=== PATIENT | male | born 1975 | race Caucasian/White ===

== ENCOUNTER 2019-03-28 14:16 | Emergency (ER) | payer MEDICARE, OTHER ==
[~2019-03-28] VITALS: Ht 182.8 cm; Wt 79.5 kg
--- NOTE | 2019-03-28 14:16 | NUR ---
Patient arrived at 1412 by [facility] with no C-collar in place. C-Collar placed on patient by tech. Jason
--- NOTE | 2019-03-28 14:20 | NUR ---
Swelling present to left posterior head, laceration to bridge of nose, multiple abrasions to face, bilateral abrasions to knees, abrasions to the right hand. Patient complaining of pain to posterior neck and mid back pain. Patient moving all extremities.
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
[2019-03-28 14:42] LABS: MEAN PLATELET VOLUME 9.3 FL (7.4-10.4); RED CELL DISTRIBUTION WIDTH 15.2 % (10.0-14.5); WHITE BLOOD COUNT 12.5 10^3/uL (4.3-11.0)
[2019-03-28] MEDS ORDERED: TETANUS,DIPTH,PERTUSS P/F (BOOSTRIX) 0.5 ML VIAL IM ONE (14:45)
--- NOTE | 2019-03-28 14:46 | Diagnostic Imaging Report ---
EXAMINATION: Chest 1 view HISTORY: Fall FINDINGS: No comparison available. Upper mediastinum is widened, likely related to portable technique. No pleural effusion or pneumothorax. No edema or pneumonia. IMPRESSION: 1. Widening of the upper mediastinum is likely related to portable technique. However, if the mechanism of injury is appropriate, a mediastinal hematoma could appear similarly. Dictated by: Dictated on workstation # [id number]
--- NOTE | 2019-03-28 14:48 | Diagnostic Imaging Report ---
INDICATION: Fall from roof. COMPARISON: None available. TECHNIQUE: Single AP view of the pelvis. FINDINGS: No traumatic diastases of the SI joints or symphysis pubis. No hip dislocation. No displaced fracture. Posterolateral instrumented fusion at L5-S1 utilizing screws. IMPRESSION: No fracture or traumatic malalignment in the pelvis by radiography. Dictated by: Dictated on workstation # [id number]
--- NOTE | 2019-03-28 14:57 | Diagnostic Imaging Report ---
EXAMINATION: CT head and CT cervical spine without contrast. TECHNIQUE: Multiple contiguous axial images were obtained through the brain and cervical spine without the use of intravenous contrast. Sagittal and coronal reformations through the cervical spine were then performed. All CT scans use one or more of the following dose optimizing techniques: automated exposure control, MA and/or KvP adjustment based on a patient size and exam type, or iterative reconstruction. HISTORY: Fall FINDINGS: No comparison available There is a left-sided scalp contusion. Basal ganglia calcifications are seen on the right. The neville-white matter differentiation is normal. No mass effect or midline shift. The ventricles are normal in size and configuration. Basilar cisterns are patent. There are no intra- or extra-axial fluid collections. There is no intracranial hemorrhage. The orbits are normal. There are bilateral maxillary sinus because retention cyst. There is ethmoid sinus mucosal thickening. Mastoid air cells are clear. No soft tissue abnormality is seen. No osseus lesions or fractures are seen. No fracture is seen in the face. The nasal bones are normal. Mandible and maxillae are normal. Zygomatic arches are normal. Pterygoid plates are normal. No soft tissue abnormality is seen. The alignment of the cervical spine is normal. No fracture is seen. Vertebral body heights are normal. The craniocervical junction is normal. Disc heights are normal. Facet and uncovertebral joints are normal. There is no osseus spinal canal stenosis. No soft tissue abnormality is seen in the neck. Limited views of the superior thorax are normal. IMPRESSION: 1. No acute intracranial abnormality. 2. No cervical spine fracture. 3. No fracture in the face. Dictated by: Dictated on workstation # [id number]
[2019-03-28 14:58] LABS: ALANINE AMINOTRANSFERASE 75 U/L (0-55); ALBUMIN 3.7 GM/DL (3.2-4.5); ALKALINE PHOSPHATASE 77 U/L (40-136); BILIRUBIN,DIRECT 0.5 MG/DL (0.0-0.3); BILIRUBIN,INDIRECT 0.7 MG/DL; BILIRUBIN,TOTAL 1.2 MG/DL (0.1-1.0); BUN/CREATININE RATIO 10; CALCIUM 8.6 MG/DL (8.5-10.1); CARBON DIOXIDE 17 MMOL/L (21-32); CHLORIDE 107 MMOL/L (98-107); CREATINE KINASE 79 U/L (30-200); CREATININE SERUM 1.44 MG/DL (0.60-1.30); GFR ESTIMATED 53; GLUCOSE 203 MG/DL (70-105); MAGNESIUM 1.9 MG/DL (1.6-2.4); PHOSPHORUS 3.5 MG/DL (2.3-4.7); POTASSIUM 3.5 MMOL/L (3.6-5.0); SODIUM 137 MMOL/L (135-145); TOTAL PROTEIN 6.4 GM/DL (6.4-8.2)
[2019-03-28] MEDS ORDERED: CATHETER FLUSH 10 ML SYR IV PRN (15:00)
[2019-03-28] MEDS ORDERED: NS 100 ML (IVPB) BAG IV ONE (15:00)
[2019-03-28] MEDS ORDERED: HOLD METFORMIN - RECEIVED CONTRAST 20 ML VIAL IV SCH (15:00)
[2019-03-28] MEDS ORDERED: IOHEXOL 350 MG/ML 100 ML (OMNIPAQUE 350) VIAL IV ONE (15:00)
--- NOTE | 2019-03-28 15:00 | NUR ---
Blood present in patient's left ear. Patient is complaining of pain to the left shoulder area upon return from CT scan.
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
[2019-03-28 15:10] LABS: INR 1.1 (0.8-1.4)
--- NOTE | 2019-03-28 15:19 | Diagnostic Imaging Report ---
PROCEDURE: CT chest, abdomen and pelvis with contrast. TECHNIQUE: Multiple contiguous axial images were obtained through the chest, abdomen and pelvis after the administration of intravenous contrast. Auto Exposure Controls were utilized during the CT exam to meet ALARA standards for radiation dose reduction. INDICATION: Trauma. COMPARISON: No comparison available. FINDINGS: The lungs are clear without edema or pneumonia. No pleural effusion or pneumothorax. No suspicious nodules. Heart size is normal. There is an area of subendocardial hypoenhancement at the apex which may represent an infarct, age indeterminate. No pericardial effusion. Aorta is normal in caliber. There is no axillary, supraclavicular or mediastinal lymphadenopathy. Liver is normal. No liver injury is seen. Gallbladder is normal. No biliary ductal dilation. Pancreas is normal. Portal vein is patent. There is a grade 3 splenic laceration with an associated subcapsular hematoma and free hemoperitoneum. No active extravasation is seen. Adrenal glands are normal. Kidneys enhance symmetrically without evidence for focal lesion or trauma. No hydronephrosis. Urinary bladder is normal. There is a small amount of hemoperitoneum in the pelvis. There is no bowel obstruction or inflammation. No bowel wall thickening. There is no mesenteric fluid to indicate mesenteric injury. Abdominal aorta is normal in caliber. There has been prior fusion of the lumbar spine. No acute fracture is seen. There is a soft tissue contusion in the left flank subcutaneous fat. IMPRESSION: 1. Grade 3 splenic laceration with hemoperitoneum. No active extravasation is seen. 2. Subendocardial hypoenhancement at the apex of the left ventricle which may represent a current or prior infarct, correlate with evidence of myocardial infarction. Findings communicated to Dr. Sandoval by Dr. Hansen on 03/28/2019 at 1500. Dictated by: Dictated on workstation # [id number]
[2019-03-28 15:20] LABS: FIBRIN DEGRADATION PRODUCTS 7.48 UG/ML (0.00-0.49)
[2019-03-28] MEDS ORDERED: HYDR4TAB49 PO (15:20)
--- NOTE | 2019-03-28 15:20 | NUR ---
Report called to [facility] to Ramone MAGANA/charge nurse. Ct scan and x-rays clouded to [facility].
--- NOTE | 2019-03-28 15:22 | NUR ---
[facility] will be responding and transporting patient to [facility]. Approximately 15 minute ETA.
[2019-03-28 15:38] VITALS: BP 158/93
[2019-03-28 15:42] LABS: BILIRUBIN,URINE NEGATIVE (NEGATIVE); CLARITY,URINE SLIGHTLY CLOUDY; COLOR,URINE YELLOW; GLUCOSE, URINE (UA) 2+ (NEGATIVE); KETONES,URINE NEGATIVE (NEGATIVE); LEUKOCYTE ESTERASE ,URINE NEGATIVE (NEGATIVE); NITRITE,URINE NEGATIVE (NEGATIVE); PH,URINE 5 (5-9); PROTEIN,URINE 2+ (NEGATIVE); UROBILINOGEN,URINE NORMAL (NORMAL)
[2019-03-28 15:42] LABS: MAGNESIUM 1.8 MG/DL (1.6-2.4)
[2019-03-28 15:49] LABS: BACTERIA,URINE TRACE /HPF; HYALINE CASTS, URINE 0-2 /LPF; WBC,URINE RARE /HPF
[2019-03-28 15:56] LABS: AMPHETAMINE SCREEN, URINE NEGATIVE (NEGATIVE); BARBITURATE SCREEN URINE NEGATIVE (NEGATIVE); BENZODIAZEPINES SCREEN URINE POSITIVE (NEGATIVE); CANNABINOID SCREEN, URINE NEGATIVE (NEGATIVE); COCAINE SCREEN URINE NEGATIVE (NEGATIVE); METHADONE STAT NEGATIVE (NEGATIVE); METHAMPHETAMINE SCREEN URINE S NEGATIVE (NEGATIVE); OPIATE SCREEN URINE POSITIVE (NEGATIVE); OXYCODONE STAT NEGATIVE (NEGATIVE); PROPOXYPHENE STAT NEGATIVE (NEGATIVE); TRICYCLIC ANTIDEPRESSANTS SCRE NEGATIVE (NEGATIVE)
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
[2019-03-28 16:04] LABS: TSH (THYROID ANALYZER) 1.99 UIU/ML (0.35-4.94)
[2019-03-28] MEDS ORDERED: NS IV 1000 ML 1,000 ML IV SCH (17:00)
[2019-03-28] MEDS: LACTATED RINGERS 1,000 ML IV SCH ×2 (17:06→17:07)
[2019-03-28] MEDS ORDERED: NS IV 1000 ML 1,000 ML IV ONE (17:37)
[2019-03-28] MEDS ORDERED: LACTATED RINGERS 1,000 ML IV ONE (17:37)
== END 2019-03-28 16:02 | disposition short-term general hospital (02) ==
LOC: ER 14:18
DX: S02.102A Fracture of base of skull, left side, initial encounter for closed fracture (principal); S36.039A Unspecified laceration of spleen, initial encounter; S36.899A Unspecified injury of other intra-abdominal organs, initial encounter; I10 Essential (primary) hypertension; G40.909 Epilepsy, unspecified, not intractable, without status epilepticus; Z23 Encounter for immunization; W13.2XXA Fall from, out of or through roof, initial encounter
CPT/HCPCS: 36415; 51702; 70450; 70486; 71045; 71260; 72125; 72128; 72131; 72170; 74177; 80048; 80076; 80306; 80320; 81000; 82550; 83735; 84100; 84443; 84484; 85027; 85379; 85384; 85610; 85730; 90715; 93005; 93041; 99291